=== PATIENT | female | born 1990 | race Hispanic/Latino ===

== ENCOUNTER 2016-09-08 14:25 | Emergency (ER) | payer BC ==
[2016-09-08 14:35] VITALS: BP 120/85; PULSE 102; RESP 20; TEMP 98.2; O2SAT 100
--- NOTE | 2016-09-08 15:04 | ED PDOC ---
HPI: Psych/Substance Abuse Time Seen by Provider: 09/08/16 14:48 Chief Complaint (Nursing): Anxiety Chief Complaint (Provider): Anxiety History Per: Patient Additional Complaint(s): Patient is a 26 yo female, denies nay PMH, brought in by ambulance from the MD' s office for complaints of hand numbness and anxiety. Past Medical History Vital Signs: Last Vital Signs Temp 98.2 F 09/08/16 14:30 Pulse 102 H 09/08/16 14:30 Resp 20 09/08/16 14:30 BP 120/85 09/08/16 14:30 Pulse Ox 100 09/08/16 14:30 - Family History Family History: States: No Known Family Hx - Allergies Allergies/Adverse Reactions: Allergies Allergy/AdvReac Type Severity Reaction Status Date / Time No Known Allergies Allergy Verified 09/08/16 15:00 - Laboratory Results Result Diagrams: 09/08/16 15:27 09/08/16 15:27 - ECG O2 Sat by Pulse Oximetry: 100 Medical Decision Making Medical Decision Making: Pt medicated with 1 mg tab Ativan PO Doing well on re-eval EKG interpreted and cleared by ED MD Head CT (-) Labs resulted and reviewed with pt who demonstrated full understanding Pt denies using amphetamines, reports her "weed might have been laced." Doing well on re-eval, vitals stable. Dangers of drug usage discussed at length. Numbness and tingling to upper extremities resolved. Disposition - Clinical Impression Clinical Impression: Substance abuse, Anxiety - Patient ED Disposition Is Patient to be Admitted: No - Disposition Disposition: Routine/Home Disposition Time: 17:46 Condition: STABLE Instructions: Anxiety (ED), Polysubstance Abuse (ED) - POA Present On Arrival: None
[2016-09-08 15:32] LABS: BASO % 0.8 % (0.0-2.0); EOS # 0.1 K/uL (0.0-0.7); HEMATOCRIT 29.5 % (34.0-47.0); LYMPH # 2.1 K/uL (1.0-4.3); LYMPH % 41.1 % (20.0-40.0); MEAN CELL VOLUME 76.3 fl (81.0-99.0); MEAN CORPUSCULAR HEMOGLOBIN 24.7 pg (27.0-31.0); MEAN CORPUSCULAR HGB CONC 32.3 g/dL (33.0-37.0); MEAN PLATELET VOLUME 7.2 fl (7.2-11.7); MONO # 0.4 K/uL (0.0-0.8); MONO % 8.3 % (0.0-10.0); NEUT # 2.5 K/uL (1.8-7.0); NEUT % 48.8 % (50.0-75.0); RED CELL DISTRIBUTION WIDTH 17.6 % (11.5-14.5); WHITE BLOOD COUNT 5.1 K/uL (4.8-10.8)
[2016-09-08 15:34] LABS: RBC URINE 1 /hpf (0-3); URINE BILIRUBIN NEGATIVE (NEGATIVE); URINE BLOOD NEGATIVE (NEGATIVE); URINE COLOR YELLOW (YELLOW); URINE GLUCOSE (UA) NEG (Normal); URINE KETONE TRACE mg/dL (NEGATIVE); URINE LEUKOCYTE ESTERASE NEG Leu/uL (Negative); URINE PROTEIN NEGATIVE (NEGATIVE); URINE UROBILINOGEN 0.2-1.0 mg/dL (0.2-1.0); WBC URINE < 1 /hpf (0-5)
--- NOTE | 2016-09-08 15:35 | RAD ---
HISTORY: jittery, palpitations COMPARISON: None available. TECHNIQUE: Chest, one view. FINDINGS: LUNGS: No focal consolidation. 1.2 x 1.9 cm rounded density is identified within the left mid lung zone, indeterminate. Please note that chest x-ray has limited sensitivity for the detection of pulmonary masses. PLEURA: No significant pleural effusion identified. No definite pneumothorax . CARDIOVASCULAR: The cardiomediastinal silhouette appears within normal limits of size. OSSEOUS STRUCTURES: No acute osseous abnormality identified. VISUALIZED UPPER ABDOMEN: Unremarkable. OTHER FINDINGS: None. IMPRESSION: 1.2 x 1.9 cm rounded density is identified within the left mid lung zone, indeterminate ; possibly nipple shadow. Correlate clinically. Repeat study with nipple markers may be considered.
[2016-09-08 16:04] LABS: ALB/GLOB RATIO 1.4 (1.0-2.1); ALCOHOL SERUM 18 mg/dl (0-10); ALKALINE PHOSPHATASE 74 U/L (38-126); ALT/SGPT 39 U/L (9-52); AST/SGOT 72 U/L (14-36); BILIRUBIN,TOTAL 0.2 mg/dl (0.2-1.3); BLOOD UREA NITROGEN 9 mg/dl (7-17); CALCIUM 9.4 mg/dL (8.4-10.2); CARBON DIOXIDE 26 mmol/L (22-30); CHLORIDE 101 mmol/L (98-107); GFR AFRICAN-AMERICAN > 60; GLUCOSE,RANDOM 66 mg/dL (65-105); POTASSIUM 3.5 MMOL/L (3.6-5.0); SODIUM 139 mmol/l (132-148); TOTAL PROTEIN 7.8 G/DL (6.3-8.2)
[2016-09-08 16:34] LABS: THYROID STIMULATING HORMONE 0.68 mIU/ML (0.46-4.68)
--- NOTE | 2016-09-08 16:45 | CT ---
PROCEDURE: CT scan brain dated 09/08/2016 HISTORY: dizzy COMPARISON: No prior study available for comparison TECHNIQUE: Axial computed tomography images were obtained through the head/brain without intravenous contrast. Radiation dose: Total exam DLP = 796.37 mGy-cm. This CT exam was performed using one or more of the following dose reduction techniques: Automated exposure control, adjustment of the mA and/or kV according to patient size, and/or use of iterative reconstruction technique. FINDINGS: HEMORRHAGE: No acute parenchymal, subarachnoid or extra-axial hemorrhage. BRAIN: No obvious parenchymal or extra-axial masses or collections. No mass effect or edema VENTRICLES: Ventricular and sulcal size are normal. No acute calvarial CALVARIUM: No acute calvarial fractures. PARANASAL SINUSES: Frontal sinuses are mildly hypoplastic. Remaining visualized paranasal sinuses well-developed and currently well-aerated. MASTOID AIR CELLS: Well-developed and well-aerated. OTHER FINDINGS: None. IMPRESSION: No acute intracranial hemorrhage.
--- NOTE | 2016-09-09 09:29 | CARD ---
APPROVED REPORT EKG Measurement Heart [id number] <Conclusion> Normal sinus rhythm Normal ECG
== END 2016-09-08 17:58 | disposition home or self-care (01) ==
LOC: H.ER 14:25
DX: F19.10 Other psychoactive substance abuse, uncomplicated (principal); F41.9 Anxiety disorder, unspecified; R20.2 Paresthesia of skin
CPT/HCPCS: 70450; 71010; 80053; 81003; 81025; 84443; 85025; 93005; 99282; G0480